=== PATIENT | female | born 1970 ===

== ENCOUNTER 2017-08-19 14:56 | Inpatient (IN) | payer OTHER ==
--- NOTE | 2017-08-19 15:44 | C.PDOC ---
History Of Present Illness 47 yr old female with PMHx of left sided DVT, s/p IVC filter presents to the ER with complaints of LLQ pain since morning. Patient also reports increased bruising for the past several weeks, including one on the right calf for past several days. Patient reports she is on Coumadin, her dose was increase from 7.5mg to 10mg approx 1.5 month ago. Patient denies fever/chills, nausea, vomiting, diarrhea, dysuria/hematuria, rectal bleeding. Time Seen by Provider: 08/19/17 15:08 Chief Complaint (Nursing): Abdominal Pain History Per: Patient History/Exam Limitations: no limitations Current Symptoms Are (Timing): Still Present Severity: Moderate Location Of Pain/Discomfort: LLQ Quality Of Discomfort: "Pain" Abnormal Vaginal Bleeding: No Past Medical History Reviewed: Historical Data, Nursing Documentation, Vital Signs Vital Signs: Last Vital Signs Temp 98 F 08/20/17 15:27 Pulse 82 08/20/17 15:27 Resp 18 08/20/17 15:27 BP 106/79 08/20/17 15:27 Pulse Ox 95 08/20/17 15:27 - Medical History PMH: Deep Vein Thrombosis, HTN Family History: States: No Known Family Hx - Social History Hx Alcohol Use: No Hx Substance Use: No Review Of Systems Except As Marked, All Systems Reviewed And Found Negative. Constitutional: Negative for: Fever, Chills Cardiovascular: Negative for: Chest Pain, Palpitations Respiratory: Negative for: Cough, Shortness of Breath Gastrointestinal: Positive for: Abdominal Pain (LLQ). Negative for: Nausea, Vomiting, Diarrhea Genitourinary: Negative for: Dysuria, Incontinence Skin: Positive for: Bruising Neurological: Negative for: Weakness, Numbness Physical Exam - Physical Exam Appears: Well, Non-toxic, In Acute Distress (Mild pain) Skin: Warm, Dry, No Rash, Ecchymosis Head: Normacephalic Oral Mucosa: Moist Cardiovascular: Rhythm Regular Respiratory: Normal Breath Sounds, No Rales, No Rhonchi, Stridor, No Wheezing Gastrointestinal/Abdominal: Bowel Sounds, Soft, Tenderness (LLQ TTP), No Distention, No Guarding, No Rebound Extremity: Normal ROM, No Pedal Edema, Capillary Refill (< 2 sec all digits ), No Deformity, Other ((+) Right Calf - approx 4cm area of ecchymosis, tender to palpation. (+) Underlying hematoma ) Pulses: Left Dorsalis Pedis: Normal, Right Dorsalis Pedis: Normal Neurological/Psych: Oriented x3, Normal Motor, Normal Sensation ED Course And Treatment - Laboratory Results Result Diagrams: 08/19/17 15:49 08/19/17 15:49 ECG: Interpreted By Me, Viewed By Me (NSR 75 bpm, normal axis, Q waves III, aVF , no acute ST changes) ECG Interpretation: Abnormal O2 Sat by Pulse Oximetry: 98 (RA) Pulse Ox Interpretation: Normal - CT Scan/US CT - Abd & Pelvis Other Rad Studies (CT/US): Read By Radiologist, Radiology Report Reviewed CT/US Interpretation: PROCEDURE: CT Abdomen and Pelvis without intravenous contrast. HISTORY: llq pain. COMPARISON: None. TECHNIQUE: Axial and reformatted coronal and sagittal CT images of the abdomen and pelvis were obtained without IV or oral contrast administration.. Contrast Dose: 0. Radiation dose: Total exam DLP = 900.08 mGy-cm. This CT exam was performed using one or more of the following dose reduction techniques: Automated exposure control, adjustment of the mA and/or kV according to patient size, and/ or use of iterative reconstruction technique. FINDINGS: LOWER THORAX: Unremarkable. LIVER: Unremarkable. No gross lesion or ductal dilatation. GALLBLADDER AND BILE DUCTS: Unremarkable. PANCREAS: Unremarkable. No gross lesion or ductal dilatation. SPLEEN: Unremarkable. ADRENALS: Unremarkable. No mass. KIDNEYS AND URETERS: There is moderate left perinephric stranding. Mild left hydronephrosis noted. No definite evidence of obstructing stone in the collecting system of the left kidney. The differential diagnosis includes infectious process versus recently passed left renal calculus. The right kidney is grossly unremarkable. VASCULATURE: IVC filter seen in place. . No aortic aneurysm. BOWEL: Unremarkable. No obstruction. No gross mural thickening. APPENDIX: No evidence of appendicitis. PERITONEUM: Unremarkable. No free fluid. No free air. LYMPH NODES: Unremarkable. No enlarged lymph nodes. BLADDER: Unremarkable. REPRODUCTIVE: The patient is likely status post partial hysterectomy. No evidence of suspicious lesion in the adnexa P. BONES: No acute fracture. OTHER FINDINGS: None. IMPRESSION: Moderate left perinephric stranding and mild left hydronephrosis without evidence of radiodense obstructing stone. The differential diagnosis includes acute infectious process/ pyelonephritis versus recently passed left renal calculi. Otherwise no evidence of acute pathology in the abdomen and pelvis. Progress Note: PLAN: Blood work, EKG, CXR. CT abd/pelvis ordered and reviewed. Patient given IV morphine for pain, PO Vitamin K for elevated INR. - Physician Consult Information Physician Contacted: Feroz Cortez Outcome Of Conversation: Discussed patient with Dr. Max cortez, agrees with admission to his service for coumadin toxicity, elevated INR, ecchymoses, right calf hematoma. Disposition - Disposition Disposition: HOSPITALIZED Disposition Time: 18:12 Condition: STABLE - Clinical Impression Clinical Impression: Coumadin toxicity, Elevated INR, Ecchymoses, spontaneous, Leg hematoma - Scribe Statement The provider has reviewed the documentation as recorded by the Aprilibe Norma Jacobo Provider Attestation: All medical record entries made by the Scribe were at my direction and personally dictated by me. I have reviewed the chart and agree that the record accurately reflects my personal performance of the history, physical exam, medical decision making, and the department course for this patient. I have also personally directed, reviewed, and agree with the discharge instructions and disposition. Decision To Admit - Pt Status Changed To: Hospital Disposition Of: Inpatient - Admit Certification Admit to Inpatient:: After my assessment, the patient will require hospitalization for at least two midnights. This is because of the severity of symptoms shown, intensity of services needed, and/or the medical risk in this patient being treated as an outpatient. - InPatient: Physician Admission Certification:: see notes - . Bed Request Type: Regular Admitting Physician: Ferzo Cortez Patient Diagnosis: Coumadin toxicity, Elevated INR, Leg hematoma, Ecchymoses, spontaneous
[2017-08-19 15:55] LABS: RBC URINE < 1 /hpf (0-3); URINE BILIRUBIN NEGATIVE (NEGATIVE); URINE COLOR Straw (YELLOW); URINE GLUCOSE (UA) NORMAL (Normal); URINE KETONE NEGATIVE (NEGATIVE); URINE LEUKOCYTE ESTERASE NEG Leu/uL (Negative); URINE PROTEIN NEGATIVE (NEGATIVE); URINE UROBILINOGEN NORMAL mg/dL (0.2-1.0); WBC URINE 1 /hpf (0-5)
[2017-08-19 15:56] LABS: BASO % 0.6 % (0.0-2.0); EOS # 0.1 K/uL (0.0-0.7); EOS % 1.5 % (0.0-4.0); HEMATOCRIT 40.9 % (34.0-47.0); LYMPH # 2.1 K/uL (1.0-4.3); LYMPH % 30.3 % (20.0-40.0); MEAN CELL VOLUME 84.2 fL (81.0-99.0); MEAN CORPUSCULAR HEMOGLOBIN 27.5 pg (27.0-31.0); MEAN CORPUSCULAR HGB CONC 32.6 g/dL (33.0-37.0); MEAN PLATELET VOLUME 7.4 fL (7.2-11.7); MONO # 0.8 K/uL (0.0-0.8); MONO % 10.9 % (0.0-10.0); RED CELL DISTRIBUTION WIDTH 15.1 % (11.5-14.5); WHITE BLOOD COUNT 6.9 K/uL (4.8-10.8)
[2017-08-19 16:03] LABS: URINE BLOOD 1+ (NEGATIVE)
[2017-08-19 16:09] LABS: INR 9.1
[2017-08-19 16:14] LABS: ALB/GLOB RATIO 1.4 (1.0-2.1); ALKALINE PHOSPHATASE 65 U/L (38-126); ALT/SGPT 33 U/L (9-52); AST/SGOT 23 U/L (14-36); BILIRUBIN,TOTAL 0.6 mg/dL (0.2-1.3); BLOOD UREA NITROGEN 7 mg/dL (7-17); CALCIUM 8.4 mg/dl (8.6-10.4); CARBON DIOXIDE 22 mmol/L (22-30); CHLORIDE 103 mmol/L (98-107); GFR AFRICAN-AMERICAN > 60; GLUCOSE,RANDOM 90 mg/dL (65-105); POTASSIUM 4.1 mmol/L (3.6-5.2); SODIUM 133 mmol/L (132-148); TOTAL PROTEIN 7.3 g/dL (6.3-8.3)
[2017-08-19] MEDS ORDERED: Phytonadione 2.5 MG/0.5 TAB TAB PO STA (16:21)
[2017-08-19] MEDS ORDERED: Morphine 4 MG/ML VIAL ONE ×2 (16:37→21:12)
--- NOTE | 2017-08-19 17:36 | CT ---
PROCEDURE: CT Abdomen and Pelvis without intravenous contrast HISTORY: llq pain COMPARISON: None. TECHNIQUE: Axial and reformatted coronal and sagittal CT images of the abdomen and pelvis were obtained without IV or oral contrast administration.. Contrast Dose: 0 Radiation dose: Total exam DLP = 900.08 mGy-cm. This CT exam was performed using one or more of the following dose reduction techniques: Automated exposure control, adjustment of the mA and/or kV according to patient size, and/or use of iterative reconstruction technique. FINDINGS: LOWER THORAX: Unremarkable. LIVER: Unremarkable. No gross lesion or ductal dilatation. GALLBLADDER AND BILE DUCTS: Unremarkable. PANCREAS: Unremarkable. No gross lesion or ductal dilatation. SPLEEN: Unremarkable. ADRENALS: Unremarkable. No mass. KIDNEYS AND URETERS: There is moderate left perinephric stranding. Mild left hydronephrosis noted. No definite evidence of obstructing stone in the collecting system of the left kidney. The differential diagnosis includes infectious process versus recently passed left renal calculus. The right kidney is grossly unremarkable. VASCULATURE: IVC filter seen in place. . No aortic aneurysm. BOWEL: Unremarkable. No obstruction. No gross mural thickening. APPENDIX: No evidence of appendicitis. PERITONEUM: Unremarkable. No free fluid. No free air. LYMPH NODES: Unremarkable. No enlarged lymph nodes. BLADDER: Unremarkable. REPRODUCTIVE: The patient is likely status post partial hysterectomy. No evidence of suspicious lesion in the adnexa P BONES: No acute fracture. OTHER FINDINGS: None. IMPRESSION: Moderate left perinephric stranding and mild left hydronephrosis without evidence of radiodense obstructing stone. The differential diagnosis includes acute infectious process/ pyelonephritis versus recently passed left renal calculi. Otherwise no evidence of acute pathology in the abdomen and pelvis.
[2017-08-19] MEDS ORDERED: Morphine 4 MG/ML VIAL IVP PRN (21:45)
[2017-08-20 07:57] LABS: INR 4.9
[2017-08-20] MEDS ORDERED: Pantoprazole 40 mg EC Tab PO SCH (10:00)
--- NOTE | 2017-08-20 16:49 | CP.PCM.PN ---
Subjective - Date & Time of Evaluation Date of Evaluation: 08/20/17 Time of Evaluation: 16:49 Objective - Vital Signs/Intake and Output Vital Signs (last 24 hours): Temp Pulse Resp BP Pulse Ox 98.8 F 75 20 130/92 H 99 08/20/17 09:10 08/20/17 09:10 08/20/17 09:10 08/20/17 09:10 08/20/17 09:10 - Medications Medications: Current Medications Lisinopril (Zestril) 20 mg PO DAILY [facility] Last Admin: 08/20/17 09:11 Dose: 20 mg Morphine Sulfate (Morphine) 4 mg IVP Q4 PRN PRN Reason: Pain, moderate (4-7) Pantoprazole Sodium (Protonix Ec Tab) 40 mg PO DAILY [facility] Last Admin: 08/20/17 09:11 Dose: 40 mg - Labs Labs: 08/19/17 15:49 08/19/17 15:49 PT 59.4 SECONDS (9.7-12.2) H* D 08/20/17 07:09 INR 4.9 D 08/20/17 07:09 APTT 67 SECONDS (21-34) H D 08/20/17 07:09
[2017-08-20 17:34] VITALS: BP 106/79; PULSE 82; RESP 18; TEMP 98
--- NOTE | 2017-08-20 18:01 | CP.PCM.HP ---
History of Present Illness - History of Present Illness History of Present Illness: 47-year-old male with PMHDVT [IVC filter in situ] presents to the ER complaining of abdominal pain since today morning. C/abdominal pain since today morning. Insidious in onset, progressive, in the left lower quadrant, stabbing type, intensity of 5/10, not relieved by medications. C status Obruising of the right calf for several days. Patient reports that her warfarin was increased to 7.5 to No C/Ohematuria, 10 mg a month and half ago. Dysuria, nausea vomiting, fever chills, rectal bleeding. Present on Admission - Present on Admission Any Indicators Present on Admission: No Past Patient History - Past Medical History & Family History Past Medical History?: Yes - Past Social History Smoking Status: Never Smoked - CARDIAC Hx Hypertension: Yes - MUSCULOSKELETAL/RHEUMATOLOGICAL Hx Falls: No - PSYCHIATRIC Hx Substance Use: No - SURGICAL HISTORY Hx Surgeries: Yes Hx Hysterectomy: Yes Other/Comment: Breast Reduction - ANESTHESIA Hx Anesthesia: Yes Hx Anesthesia Reactions: No Meds Home Medications: Home Medication List Medication Instructions Recorded Confirmed Type Warfarin [Coumadin] 4 mg PO DAILY #4 tab 08/20/17 Rx Allergies/Adverse Reactions: Allergies Allergy/AdvReac Type Severity Reaction Status Date / Time No Known Allergies Allergy Unverified 08/19/17 15:06 Physical Exam - Constitutional Appears: Well - Head Exam Head Exam: ATRAUMATIC, NORMAL INSPECTION, NORMOCEPHALIC - Eye Exam Eye Exam: EOMI, Normal appearance, PERRL Pupil Exam: NORMAL ACCOMODATION, PERRL - ENT Exam ENT Exam: Mucous Membranes Moist, Normal Exam - Neck Exam Neck exam: Positive for: Normal Inspection - Respiratory Exam Respiratory Exam: Decreased Breath Sounds - Cardiovascular Exam Cardiovascular Exam: REGULAR RHYTHM, +S1, +S2 - GI/Abdominal Exam GI & Abdominal Exam: Diminished Bowel Sounds, Soft - Rectal Exam Rectal Exam: Deferred Results - Vital Signs Recent Vital Signs: Last Vital Signs Temp 98 F 08/20/17 15:27 Pulse 82 08/20/17 15:27 Resp 18 08/20/17 15:27 BP 106/79 08/20/17 15:27 Pulse Ox 95 08/20/17 15:27 - Labs Result Diagrams: 08/19/17 15:49 08/19/17 15:49 Labs: Laboratory Results - last 24 hr 08/20/17 07:09 PT 59.4 H* D INR 4.9 D APTT 67 H D
--- NOTE | 2017-08-21 16:54 | CARD ---
APPROVED REPORT EKG Measurement Heart [id number] <Conclusion> Normal sinus rhythm with sinus arrhythmia Inferior infarct, age undetermined Cannot rule out Anterior infarct, age undetermined Abnormal ECG
[2017-08-22 17:14] VITALS: O2SAT 98
== END 2017-08-20 17:51 | disposition home or self-care (01) | DRG 813 ==
LOC: C.ER 14:56 → C.9E 18:12 → C.6T 18:40 → C.9E 18:51 → C.6T 21:35
PROVIDERS: ADMIT Internal Medicine Nephrology; ATTEND Internal Medicine Nephrology
DX: R23.3 Spontaneous ecchymoses (principal); T45.515A Adverse effect of anticoagulants, initial encounter; N13.30 Unspecified hydronephrosis; I10 Essential (primary) hypertension; Z79.01 Long term (current) use of anticoagulants; R10.32 Left lower quadrant pain